=== PATIENT | female | born 1970 | race Caucasian/White ===

== ENCOUNTER 2018-01-04 06:30 | Day surgery (SDC) | payer BC ==
[~2018-01-04] VITALS: Ht 157.5 cm; Wt 77.1 kg
[~2018-01-04 06:30] MED LIST: ADVIL200 MG PO; MULTIPLE VITAM1 EAC4 PO; NORCO 5/3251 TABLET PO; WELLBUTRIN XL300 MG PO
[2018-01-04 06:58] VITALS: BP 130/76
[2018-01-04] MEDS ORDERED: NORCO 5/3251 TABLET PO (11:57)
[2018-01-04] MEDS ORDERED: ZOFRAN4 MG PO (11:57)
[2018-01-04 12:38] VITALS: BP 128/74
[2018-01-04 13:40] VITALS: BP 117/62
[2018-01-04 15:41] VITALS: BP 105/56
== END 2018-01-04 15:50 | disposition home or self-care (01) ==
LOC: SDC 06:30
DX: K43.9 Ventral hernia without obstruction or gangrene (principal); K66.0 Peritoneal adhesions (postprocedural) (postinfection); I25.10 Atherosclerotic heart disease of native coronary artery without angina pectoris; I34.1 Nonrheumatic mitral (valve) prolapse; G43.109 Migraine with aura, not intractable, without status migrainosus; F32.9 Major depressive disorder, single episode, unspecified; R00.2 Palpitations
CPT/HCPCS: C1781; J0690; J1100; J1170; J1885; J2001; J2250; J2405; J2710; J2765; J3010; J3475; Q0175; S0020